=== PATIENT | female | born 2000 | race Caucasian/White ===

== ENCOUNTER 2020-05-28 12:49 | Emergency (ER) | payer MEDICAID ==
--- NOTE | 2020-05-28 13:30 | EDM.PDOC ---
ED HPI GENERAL MEDICAL PROBLEM - General Chief Complaint: Skin Complaint Stated Complaint: POSSIBLE INFECTION IN LT KNEE Time Seen by Provider: 05/28/20 13:15 Source of Information: Reports: Patient History Limitations: Reports: No Limitations - History of Present Illness INITIAL COMMENTS - FREE TEXT/NARRATIVE: 19-year-old female with left-sided knee pain and swelling for the past 2 to 3 days. She has a small abrasion just distal and lateral to the knee, and over the past 48 hours she has had swelling and redness of the patellar bursa with tenderness. Yesterday afternoon she felt mildly chilled and was having difficulty at work this morning so they sent her in to be checked. No other complaints. No trauma she knows of. Onset: Gradual Duration: Day(s): (3 days) Location: Reports: Other (Left knee) Worsens with: Reports: Other (Activity, ambulation), Movement Associated Symptoms: Reports: Fever/Chills Left Knee Pain Score (Numeric/FACES): 4 - Related Data Allergies Allergy/AdvReac Type Severity Reaction Status Date / Time No Known Allergies Allergy Verified 05/28/20 13:24 Home Meds: Home Meds NK [No Known Home Meds] 05/28/20 [History] ED ROS GENERAL - Review of Systems Review Of Systems: See Below Constitutional: Reports: Chills, Malaise HEENT: Reports: No Symptoms Respiratory: Reports: No Symptoms GI/Abdominal: Reports: No Symptoms Musculoskeletal: Reports: Other (Left knee pain and swelling) Skin: Reports: Erythema (Erythema over the left knee along with a small abrasion) Neurological: Denies: Paresthesia Psychiatric: Reports: No Symptoms ED EXAM, SKIN/RASH Exam: See Below Exam Limited By: No Limitations General Appearance: Alert, No Apparent Distress Head: Atraumatic Neck: Supple Respiratory/Chest: No Respiratory Distress Extremities: Other (Exam is otherwise limited to the lower extremities. The left knee has no effusion, there is swelling over the patella. There is also erythema and slight warmth. Small healing abrasion is present just distal and lateral to the knee.) Neurological: Alert, Oriented Course - Vital Signs Last Recorded V/S: Last Vital Signs Temp 97.3 F 05/28/20 13:22 Pulse 79 05/28/20 13:22 Resp 16 05/28/20 13:22 BP 122/79 05/28/20 13:22 Pulse Ox 97 05/28/20 13:22 - Re-Assessments/Exams Free Text/Narrative Re-Assessment/Exam: 05/28/20 13:28 This patient has a left prepatellar bursitis, possibly cellulitis involved with the nearby abrasion. She will be placed on Augmentin 875 mg twice daily, encouraged to elevate the leg and wrap to control swelling. Increase activity as tolerated and recheck in 2 to 3 days if not improving satisfactorily, or return sooner if worsening despite treatment. Departure - Departure Time of Disposition: 13:40 Disposition: Home, Self-Care Clinical Impression: Patellar bursitis of left knee Cellulitis Qualifiers: Site of cellulitis of extremity: lower extremity Laterality: left - Discharge Information Instructions: Cellulitis, Adult, [id number] Referrals: PCP,None [Primary Care Provider] - Forms: ED Department Discharge Care Plan Goals: Take 1 dose of antibiotic with food twice daily for at least a week, elevate the leg when able and wrap for support and comfort and to help with swelling. Recheck in the next 2 to 3 days if not improving despite treatment, or return anytime if worsening such as vomiting the medication, increased pain and erythema or persistent fever. Sepsis Event Note (ED) - Evaluation Sepsis Screening Result: No Definite Risk - Focused Exam Vital Signs: Vital Signs Temp Pulse Resp BP Pulse Ox 05/28/20 13:22 97.3 F 79 16 122/79 97 05/28/20 13:12 97.3 F 79 16 122/79 97
== END 2020-05-28 13:40 | disposition home or self-care (01) ==
LOC: JP.ED 12:49
DX: M70.52 Other bursitis of knee, left knee (principal); L03.116 Cellulitis of left lower limb
CPT/HCPCS: 99283